=== PATIENT | male | born 1960 | race Caucasian/White ===

== ENCOUNTER 2024-11-13 14:56 | Emergency (ER) | payer OTHER, SELFPAY ==
[2024-11-13] VITALS (17 sets, daily range): BP systolic 105–176; BP diastolic 69–105; PULSE 90–99; RESP 16–17; TEMP 36.4–36.8; O2SAT 89–99
--- NOTE | ~2024-11-13 | XR_ITS ---
EXAMINATION: XR chest 1V portable Exam Date/Time: 11/13/2024 15:09 CDT HISTORY: shortness of breath/ productive cough x1 day Comparison: None. RESULT: Lines, tubes, and devices: None. Lungs and pleura: No focal consolidation, pleural effusion, or pneumothorax. 1 cm nodular opacity in the right lower lung. Cardiomediastinal silhouette: Unremarkable. Other: No acute osseous or upper abdominal finding. IMPRESSION: No acute cardiopulmonary process. 1 cm nodular right lower lung opacity, may represent artifact or pu lmonary nodule. Recommend PA and lateral views of the chest and comparison to outside studies. Reviewed, dictated and finalized at location K. IMPRESSION: No acute cardiopulmonary process. 1 cm nodular right lower lung opacity, may re present artifact or pulmonary nodule. Recommend PA and lateral views of the [address]est[address] st and comparison to outside studies.
--- NOTE | 2024-11-13 14:57 | ED_ITS ---
HPI - SOB/Dyspnea General Chief Complaint: Shortness of Breath/Dyspnea Stated Complaint: sob Time Seen by Provider: 11/13/24 14:57 Source: patient Mode of arrival: ambulatory Limitations: no limitations History of Present Illness HPI Narrative: 64-year-old male ex-smoker, history of alcohol use, hypertension dyslipidemia, dyslipidemia, COPD, prostate cancer presents to the ED with a 2 week history of -- cough which is productive of yellow/greenish sputum -- worsening shortness of breath with bilateral wheezing -- dyspnea on exertion no chest pain no fever or chills patient is on albuterol and Advair. MD elicited complaint: shortness of breath and cough Pertinent past history: COPD Onset (ago): week(s) ( 2 weeks) Timing: progressively worsening Severity: severe Exacerbating factors: exertion Relieving factors: rest Known history of: COPD Associated symptoms: denies other symptoms, cough, wheezing and sputum production Treatment prior to arrival: none and bronchodilator Related Data Home oxygen amount: none Home Medications ?Medication ?Instructions ?Recorded ?Confirmed ?Last Taken ?Type atorvastatin 20 mg tablet 20 mg PO DAILY 03/17/19 03/23/19 03/21/19 History fluticasone fur. 100 mcg-umeclid 1 inh inhalation DAILY 03/17/19 03/17/19 03/21/19 History 62.5 mcg-vilant 25 mcg inhalat.powder (Trelegy Ellipta) irbesartan 150 mg tablet 150 mg PO DAILY 03/17/19 03/17/19 03/21/19 History fluticasone fur. 100 mcg-umeclid 1 inhalation inhalation DAILY 04/12/19 Unknown History 62.5 mcg-vilant 25 mcg inhalat.powder (Trelegy Ellipta) Allergies Allergy/AdvReac Type Severity Reaction Status Date / Time No Known Allergies Allergy Verified 11/13/24 14:57 Review of Systems 2 Review of Systems: All systems reviewed & are unremarkable except as noted in HPI and below Constitutional: Constitutional: Reports as per HPI and Reports no additional constitutional complaints Eyes: Eyes: Reports as per HPI and Reports no additional eye complaints ENT: Reports system reviewed and no additional complaints, except as documented and Reports as per HPI Cardiovascular: Cardiovascular: Reports as per HPI and Reports no additional cardiovascular complaints Respiratory: Respiratory: Reports as per HPI, Reports no additional respiratory complaints, Reports chest congestion, Reports cough, Reports dyspnea and Reports wheezing Gastrointestinal: Gastrointestinal: Reports as per HPI and Reports no additional gastrointestinal complaints Genitourinary: Genitourinary: Reports no additional male genitourinary complaints and Reports as per HPI Musculoskeletal: Musculoskeletal: Reports no additional musculoskeletal complaints and Reports as per HPI Integumentary/Breasts: Skin/Breast: Reports system reviewed and no additional complaints, except as docu and Reports as per HPI Neurologic: Reports system reviewed and no additional complaints, except as documented and Reports as per HPI Psychiatric: Psychiatric: Reports no additional psychiatric complaints and Reports as per HPI Endocrine: Endocrine: Reports no additional endocrine complaints and Reports as per HPI Hematologic/Lymphatic: Hematologic/Lymphatic: Reports no additional hematologic/lymphatic complaints and Reports as per HPI Allergic/Immunologic: Allergic/Immunologic: Reports no additional allergic/immunologic complaints and Reports as per HPI [facility] Past Medical History Medical History Encounter for screening colonoscopy History of prostate cancer COPD (chronic obstructive pulmonary disease) Hypertension Hyperlipidemia Family History Family History Mother Patient's mother is , Onset Age: 84 Family history of malignant neoplasm of uterus Family history of malignant neoplasm of urinary bladder Father Carcinoma of colon Malignant neoplasm of prostate Social History Social History Smoking status: Former smoker Alcohol intake: current Exam 2 Narrative: Afebrile Const: General: ill appearing Orientation/consciousness: patient oriented x3 Other: in respiratory distress HENMT: Head: normal to inspection Ears: external ears normal F opal/Nose/Sinus: Normal external nose present Face and sinus: normal facial exam Mouth: Yes Normal oral and palatal mucosa present Throat: posterior oropharynx normal Eyes: Conjunctivae: conjunctivae normal Pupils: Equal, round and reactive pupils present EOM: EOMs intact bilaterally Direct Ophthalmoscopy: no photophobia Neck: Neck: normal visual inspection, no lymphadenopathy and no meningeal signs Chest: Chest palpation & inspection: normal inspection of the chest Resp: Effort & Inspection: labored and uses accessory muscles Auscultation: wheezes and diminished lung sounds Cardio: Rate: regular rate Rhythm: regular rhythm GI: GI Palp: Yes Soft to palpation Auscultation: normal bowel sounds O ther: no tenderness/ rigidity /rebound Course Course Emergency Course: COPD exacerbation- patient received DuoNeb treatment and Solu-Medrol 125 IM. patient was noted to have a normal RSV /influenza / COVID. Chest x-ray did not show any infiltrates evidence of CHF. Patient had a normal troponin and a proBNP. Patient had a normal white cell count. ABG on room air was noted to be 739/37/62/ 90%. Patient tested negative for D-dimer. ProBNP was noted to be 58. 1 cm right lower lobe nodule Vital Signs Vital signs: Vital Signs Temperature 36.4 C 11/13/24 14:56 Pulse Rate 99 11/13/24 14:56 Respiratory Rate 16 11/13/24 14:56 Blood Pressure 176/100 H 11/13/24 14:56 Pulse Oximetry 92 11/13/24 14:56 Oxygen Delivery Room Air 11/13/24 14:56 Temperature 36.4 C 11/13/24 14:56 Pulse Rate 99 11/13/24 14:56 Respiratory Rate 16 11/13/24 14:56 Blood Pressure 176/100 H 11/13/24 14:56 Pulse Oximetry 92 11/13/24 15:00 Oxygen Delivery Room Air 11/13/24 15:00 MDM - SOB/Dyspnea MDM Narrative Medical decision making narrative: COPD exacerbation- patient currently does have trilogy elevated up. The patient is taking Advair. Will give DuoNeb. Advised admission but the patient does not want to be admitted. right lower lobe 1 cm nodule Differential Diagnosis Differential diagnosis: Likely congestive heart failure and pulmonary embolism Medical Records Attestation: I reviewed the patient's medical records. Lab Data Attestation: I reviewed the patient's lab results. 11/13/24 15:35 11/13/24 15:35 Labs: Lab Results 11/13/24 Range/Units 15:35 WBC 7.8 (4.8-10.8) K/mm3 RBC 5.54 (4.70-6.10) M/mm3 Hgb 16.4 (14.0-18.0) g/dL Hct 48.0 (40.0-54.0) % MCV 86.6 (78.0-102.0) fL MCH 29.6 (27.0-31.0) pg MCHC 34.2 (32-36) g/dL RDW 11.9 (11.6-14.4) % Plt Count 287 (150-420) K/mm3 MPV 10.3 (8.7-11.0) fl Immature Gran % (Auto) 0.4 H (0.0-0.0) % Neut % (Auto) 64.9 (50.0-70.0) % Lymph % (Auto) 17.1 L (18.0-42.0) % Parmer % (Auto) 8.1 (2.0-11.0) % Eos % (Auto) 8.6 H (1.0-6.0) % Baso % (Auto) 0.9 (0.0-1.0) % Lymph # (Auto) 1.34 (1.10-4.50) K/mm3 [place]mer # (Auto) 0.63 (0.10-0.90) K/mm3 Eos # (Auto) 0.67 H (0.02-0.50) K/mm3 Baso # (Auto) 0.07 (0.00-0.10) K/mm3 Abs Immat Gran (auto) 0.03 H (0.00-0.00) K/mm3 Absolute Neuts (auto) 5.08 (1.70-7.20) K/mm3 Absolute Nucleated RBC 0.00 (0.00-0.00) K/mm3 Nucleated RBC % 0.0 (0-0.0) % PT 11.3 H (9.64-11.0) Seconds INR 1.0 APTT 29.4 (23.9-30.70) Sec D-Dimer 0.19 (0.19-0.50) mg/L Sodium 139 (137-145) mmol/L Potassium 4.0 (3.4-5.0) mmol/L Chloride 104 (98-107) mmol/L Carbon Dioxide 25 (22-30) mmol/L Anion Gap 10 (4-12) mmol/L BUN 9 (9-20) mg/dL Creatinine 0.75 (0.7-1.3) mg/dL Estim Creat Clear Calc 107 ml/min Estimated GFR > 60 (59 - ) Glucose 115 H (65-110) mg/dL Calculated Osmolality 287 (285-295) mOsm/kg Lactic Acid 1.8 (0.4-2.0) mmol/L Calcium 8.9 (8.4-10.2) mg/dL Magnesium 2.0 (1.6-2.3) mg/dL Total Bilirubin 1.6 H (0.2-1.3) mg/dL AST 40 (17-59) U/L ALT 40 (6-50) U/L Alkaline Phosphatase 99 (38-126) U/L Total Creatine Kinase 192 H (55-170) U/L Troponin I < 0.012 (0.000-0.034) ng/mL NT-Pro-B Natriuret Pep 58 (19.9-100) pg/mL Total Protein 8.2 (6.3-8.2) g/dL Albumin 4.9 (3.5-5.1) g/dL Lipase 52 (23-300) U/L Urine Color Yellow (Yellow) Urine Appearance Clear (Clear) Urine pH 6.0 (5.0-8.0) Ur Specific [place] >= 1.030 H (1.010-1.020) Urine Protein 2+ H (Negative) Urine Glucose (UA) Negative (Negative) Urine Ketones 1+ H (Negative) Ur Blood (Man) Trace-intact H (Negative) Urine Nitrate Negative (Negative) Urine Bilirubin 1+ H (Negative) Urine Urobilinogen 1.0 (0.2-1.0) mg/dL Leukocyte Esterase Rfl Negative (Negative) LESLIE/UL Urine RBC 0-2 (0-2) /hpf Urine WBC None seen (0-3) /hpf Ur Squamous Epith Cells Few (Few) /hpf Urine Bacteria None seen (None) /hpf Ur Oval Fat Bodies None (None) /lpf Influenza A (RT-PCR) Negative (Negative) Influenza B (RT-PCR) Negative (Negative) RSV (RT-PCR) Negative (Negative) SARS-CoV-2 RNA (RT-PCR) Negative (Negative) ABG Data ABG results: 11/13/24 16:50 Puncture Site Left radial ABG pH 7.39 ABG pCO2 37.1 ABG pO2 61.8 L ABG HCO3 22.1 L ABG O2 Saturation 91.1 L ABG Base Excess -2.3 L Oxyhemoglobin 90.2 L O2 Delivery Device Room air O2 Liters/Min 0.0 ECG Data EKG #1: ECG completion date: 11/13/24 ECG completion time: 15:41 Interpretation: Normal sinus rhythm. Normal axis. No ST elevation. Discharge Plan Discharge Clinical Impression: Chronic obstructive pulmonary disease with (acute) exacerbation, Pulmonary nodule 1 cm or greater in diameter Patient Disposition: Home Condition: Stable Instructions: Antibiotic Form, COPD (Chronic Obstructive Pulmonary Disease) (ED), Pulmonary Nodules (ED) Patient Language: [place] Prescriptions: New azithromycin [Zithromax] 250 mg tablet 250 mg PO DAILY 4 Days Qty: 4 0RF Rx Instructions: start on day 2 of therapy ipratropium-albuterol 0.5 mg-3 mg(2.5 mg base)/3 mL solution for nebulization 3 ml inhalation Q6H MDD 4 PRN (Reason: shortness of breath) Qty: 180 0RF prednisone 20 mg tablet 20 mg PO BID Qty: 10 0RF No Action atorvastatin 20 mg Tablet 20 mg PO DAILY irbesartan 150 mg Tablet 150 mg PO DAILY Trelegy Ellipta 100-62.5-25 mcg Blister With Device 1 inh INHALATION DAILY Trelegy Ellipta 100-62.5-25 mcg blister with device 1 inhalation INHALATION DAILY Follow-up/Referrals: UNKNOWN,DOCTOR [Non-Staff] - Time of Disposition: 17:44
--- OUTSIDE RECORDS SUMMARY | 2024-11-13 14:58 | XMS_ITS | Referral Summary ---
Author Organization [address] Address [address] [place] [address] Care Team Providers Care Oleomargarine Maker Name Role Phone Dylan Moore MD Primary Care Provider [phone] Bryson Dugan MD Unavailable [phone] Encounters Date Type Department Care Team Description 11/13/2024 Telephone [facility] [address] [place] [address] Tangela Lynch MA 11/10/2024 Orders Only [facility] [address] [address] Dylan Moore MD COPD exacerbation (HCC) 11/08/2024 Telephone [facility] [address] [address] Dylan Moore MD Albuterol Inhaler,prednisone refills 10/13/2024 7:00 PM CDT Office Visit [facility] [address] [place] [address] Jasmine Ace NP COPD exacerbation (HCC) (Primary Dx) from Last 3 Months Allergies No known active allergies Medications multivitamin capsule Take 1 capsule by mouth daily Active vit D3-vit N-nqmboqhzi-fyv s [phone] zbnk-dyt-nn-mg tablet Take by mouth Active metoprolol tartrate (LOPRESSOR) 25 mg immediate release tablet Take 1 tablet (25 mg total) by mouth 2 (two) times a day 180 tablet 4 08/12/19 24 Active atorvastatin (LIPITOR) 40 mg tablet Take 1 tablet (40 mg total) by mouth daily 90 tablet 3 02/12/20 24 2024 Active ofloxacin (OCUFLOX) 0.3 % ophthalmic solution Administer 2 drops into the left ear 4 (four) times a day 5 mL 02/12/20 24 Active albuterol HFA (PROVENTIL HFA,VENTOLIN HFA,PROAIR HFA) 90 mcg/actuation inhalerIndicati ons:Chronic bronchitis, unspecified chronic bronchitis type (HCC) Inhale 2 puffs every 4 (four) hours as needed for wheezing 9 g 11 02/12/20 24 Active montelukast (SINGULAIR) 10 mg tabletIndicatio ns:Chronic bronchitis, unspecified chronic bronchitis type (HCC) Take 1 tablet (10 mg total) by mouth nightly 100 tablet 3 08/13/19 25 Active irbesartan (AVAPRO) 150 mg tabletIndicatio ns:Hypertension , essential Take 1 tablet by mouth once daily 90 tablet 09/25/19 25 Active albuterol 2.5 mg /3 mL (0.083 %) nebulizer solutionIndicat ions:COPD exacerbation (HCC) Take 3 mL (2.5 mg total) by nebulization every 6 (six) hours as needed for wheezing 75 mL 10/14/19 25 Active fluticasone propion-salmete roL (ADVAIR DISKUS) 250-50 mcg/dose diskus inhalerIndicati ons:Chronic bronchitis, unspecified chronic bronchitis type (HCC) INHALE 1 DOSE BY MOUTH TWICE DAILY. RINSE MOUTH WITH WATER AFTER USE AND SPIT. DO NOT SWALLOW. 60 each 10/20/19 25 Active albuterol 2.5 mg /3 mL (0.083 %) nebulizer solution Take 3 mL (2.5 mg total) by nebulization 4 (four) times a day as needed for wheezing or shortness of breath 75 mL 2 11/11/19 25 2025 Active fluticasone propion-salmete roL (ADVAIR DISKUS) 250-50 mcg/dose diskus inhalerIndicati ons:Chronic bronchitis, unspecified chronic bronchitis type (HCC) INHALE 1 DOSE BY MOUTH TWICE DAILY. RINSE MOUTH WITH WATER AFTER USE AND SPIT. DO NOT SWALLOW. 60 each 09/25/19 25 2024 Discontinued predniSONE (DELTASONE) 10 mg tabletIndicatio ns:COPD exacerbation (HCC) Take 4 tablets (40 mg) by mouth daily for 3 days, THEN 3 tablets (30 mg) daily for 3 days, THEN 2 tablets (20 mg) daily for 3 days, THEN 1 tablet (10 mg) daily for 3 days. 30 tablet 10/15/19 25 2024 azithromycin (ZITHROMAX) 250 mg tabletIndicatio ns:COPD exacerbation (HCC) Take 2 tabs (500 mg) by mouth today, than 1 tab (250 mg) daily for 4 days. 6 tablet 10/14/19 25 2024 Active Problems Problem Noted Date Diagnosed Date Tinea corporis 08/12/2024 Assessment & Plan (08/12/2024 2:47 PM CDT): Patient with annular pruritic rash on upper back present for the past several months. Consistent with tinea, recommended use of Nizoral shampoo as body wash instructed to leave on skin for 5 minutes before rinsing. Dry skin thoroughly, apply clotrimazole cream b.i.d.. Follow up if no improvement. Uncontrolled hypertension 01/04/2022 Assessment & Plan (01/04/2022 4:57 PM CDT): Patient to start hydrochlorothiazide and metoprolol in addition to it irbesartan. Will follow-up in office in 1-2 weeks to monitor blood pressure. Extensively reviewed need to go to ER if experiencing chest pain, dizziness, sweating, headache or visual disturbances. Alcohol abuse 01/04/2022 Assessment & Plan (01/25/2022 2:11 PM CDT): Continues IOP meetings was I will 3 times weekly. Has had not had any alcohol since 01/03/2022. Assessment & Plan (01/04/2022 4:59 PM CDT): Discussed treatment options with patient today and need for additional resources. He will schedule an appointment with our offers addiction social worker for next week. He denies feeling depressed or hopeless. Denies any suicidal ideation or plans when asked directly today. Fatigue 12/29/2020 Assessment & Plan (12/29/2020 6:00 PM CDT): Discussed causes of fatigue. Will check labs today. Discussed LOIDA, patient would like to return to discuss further. Encounter for screening for lung cancer 12/30/19 Assessment & Plan (12/29/2020 5:36 PM CDT): Will get scan today. Prostate cancer 06/06/2020 Assessment & Plan (08/12/2024 2:45 PM CDT): Prostatectomy; previously following with Urology and Dr. Velázquez. To establish for continued surveillance. PSA ordered today. Assessment & Plan (12/05/2021 8:12 AM CDT): Prostatectomy. Following with Dr. Velázquez urology, has scheduled follow up in 2 days. Assessment & Plan (12/29/2020 4:29 PM CDT): Prostatectomy 12/2017-follows with urology every [address] Velázquez. LAST OV 12/27/20. Class 1 obesity due to exces s calories with serious comorbidity and body mass index (BMI) of 33.0 to 33.9 in adult 06/06/2020 Assessment & Plan (08/12/2024 2:44 PM CDT): Stable; encouraged healthy diet exercise. Assessment & Plan (02/12/2024 1:52 PM CDT): Encouraged patient to increase intentional activity/exercise. Recommended daily physical exercise such as walking. Assessment & Plan (08/12/2023 11:08 AM CDT): Discussed healthy diet and importance of regular physical activity. Assessment & Plan (02/10/2023 11:30 AM CDT): Discussed importance of regular physical activity. Assessment & Plan (01/25/2022 2:14 PM CDT): Discussed healthy diet and importance of regular physical activity. Assessment & Plan (01/04/2022 4:48 PM CDT): Discussed healthy diet and importance of regular physical activity. Assessment & Plan (12/05/2021 8:15 AM CDT): Discussed healthy diet and importance of regular physical activity. Assessment & Plan (12/29/2020 5:36 PM CDT): Discussed healthy diet and importance of regular physical activity. Chronic obstructive pulmonary disease 06/06/2020 Assessment & Plan (08/12/2024 5:06 PM CDT): Continue Advair 1 puff b.i.d., reports using albuterol inhaler about once daily. Patient with increased wheezing in the last few weeks. States that he did not get refill for Singulair, requesting today. Faint wheezing on exam. Denies any shortness of breath or fevers. Prescribed prednisone taper today. He is due for CT lung cancer screening, ordered this today. Patient with a 64 pack year smoking history, quit 2010. Assessment & Plan (02/12/2024 1:52 PM CDT): Continues Advair and Singulair nightly. Has been taking Zyrtec as well. Denies any recent exacerbation or need for albuterol inhaler. Will continue to monitor. Assessment & Plan (08/12/2023 11:04 AM CDT): Patient states that symptoms have improved some in the last few weeks. Still complains of productive cough. Is also having a lot of nasal congestion/drainage. Recommended addition of Zyrtec or Claritin nightly as well as Flonase nasal spray. Continue Advair and montelukast. Continues to refrain from smoking. No indication for antibiotics. Instructed patient to call office if he develops any new or worsening symptoms. Assessment & Plan (02/10/2023 11:29 AM CDT): Patient reports infrequent use of albuterol inhaler. Denies wheezing or coughing. Advair diskus 1 puff BID ordered as a lower cost option versus trelegy. Recommended to follow up with pulmonology regarding trelegy samples. Patient aware to follow up if advair diskus does not provide relief, or if experiencing increased shortness of breath or wheezing. Assessment & Plan (01/04/2022 4:53 PM CDT): Continues to have wheezing and mucus production. Encouraged patient to increase use of albuterol inhaler. Updated referral to pulmonology. Assessment & Plan (12/05/2021 8:10 AM CDT): Wheezing. Continue current inhaler and medication regimen. Complete prednisone course. Assessment & Plan (12/29/2020 5:28 PM CDT): No acute exacerbations. Advised to use albuterol inhaler 15 minutes before Trelegy. Melena 05/19/2020 COVID-19 virus infection 05/19/2020 Hyperlipidemia 05/19/2020 Assessment & Plan (08/12/2024 2:44 PM CDT): Stable continue atorvastatin 40 mg daily. Assessment & Plan (02/12/2024 2:05 PM CDT): Reviewed cholesterol for the patient, LDL increased. Will change simvastatin to atorvastatin 40 mg daily. Encouraged daily compliance. Will continue to monitor. Assessment & Plan (08/12/2023 11:08 AM CDT): Reviewed cholesterol panel today with patient, LDL increased significantly. Discussed impact of noncompliance with medication and diet on cholesterol. LDL =234. Will increase simvastatin from 20 mg to 40 mg daily. Recommended use of pill box/setting alarm on phone. Reviewed diet and exercise recommendations. Will repeat labs in 6 months. Assessment & Plan (02/10/2023 11:17 AM CDT): Patient has stopped taking atorvastatin 20 mg due to insurance changes. Will start simvastatin 20 mg and plan to repeat labs prior to next follow up visit. Assessment & Plan (01/25/2022 2:09 PM CDT): 05/2020 TC 153 TRG 175 HDL 37 LDL 81 12/2021 TC 223 HDL 54 TRG 213 LDL 126 Has been taking atorvastatin 20 mg daily. Previously missing many doses. Will plan to repeat labs prior to follow up visit in 6 months, labs ordered to [facility]. Assessment & Plan (01/04/2022 4:48 PM CDT): Condition is improving, but not at goal Discussed/ordered labs, encouraged healthy, low carbohydrate lifestyle and at least 150min/week of exercise, continue on atorvastatin 20 mg daily. II=520, HDL=54, ZJY=542, CFO=310 Assessment & Plan (12/05/2021 8:16 AM CDT): HPI: Condition is worsening A&P: Discussed/ordered labs, encouraged healthy, low carbohydrate lifestyle and at least 150min/week of exercise, continue on atorvastatin 20 mg daily. Discussed importance of diet and medication compliance and concerns of elevated triglycerides. Repeat fasting labs. Assessment & Plan (12/29/2020 6:06 PM CDT): Reviewed previous labs. Will check labs today and make adjustments to medications as needed. Secondary prevention Discussed focusing on limiting bad fats in the diet and using exercise as a way to improve cholesterol. Reviewed exercise recommendations and red flags warranting further evaluation. Hypertension, essential 05/19/2020 Assessment & Plan (08/12/2024 2:45 PM CDT): Blood pressure is well controlled, no change made today. Continue metoprolol 25 mg b.i.d. and irbesartan 150 mg daily. Assessment & Plan (02/12/2024 1:53 PM CDT): Blood pressure well controlled today, continue present management with irbesartan and metoprolol. Assessment & Plan (08/12/2023 11:02 AM CDT): Blood pressure is not at goal, patient is not taking metoprolol as he did not realize this was a long-term medication. Will restart metoprolol, continue irbesartan and continue to monitor. Assessment & Plan (02/10/2023 11:21 AM CDT): Blood pressure not at goal today 142/100. Patient stopped taking irbesartan and hydrochlorothiazide due to insurance changes. Denies headaches, dizziness, chest pain, chest pressure, or lower extremity edema. Plan to continue metoprolol 25 mg BID and irbesartan 150 mg daily. Assessment & Plan (01/25/2022 2:14 PM CDT): Patient BP improved with addition of HCTZ and metoprolol. Condition is improving Discussed/ordered labs, encouraged healthy, low carbohydrate lifestyle and at least 150min/week of exercise, continue on hydrochlorothiazide 12.5 mg, metoprolol 25 mg, irbesartan 150 mg tablet daily. Assessment & Plan (12/05/2021 8:15 AM CDT): HPI: Condition is stable A&P: Discussed/ordered labs, encouraged healthy, low carbohydrate lifestyle and at least 150min/week of exercise, continue on irbesartan 150 mg daily. Assessment & Plan (12/29/2020 6:07 PM CDT): BP elevated today 2/2 patient not taking medications. Checking BP at home. Will call if SBP >140, DBP>90. Continue effort to improve diet-increase fruits/vegetables. Watch sodium intake <2000mg daily Labs ordered; will notify of results. Symptomatic anemia 05/18/2020 Anemia due to GI blood loss 05/18/2020 Overview (05/19/2020): Added automatically from request for surgery [id number] Bleeding duodenal ulcer Resolved Problems Problem Noted Date Diagnosed Date Resolved Date Need for pneumococcal vaccine 12/05/2021 12/05/2021 Moderate malnutrition 05/22/20202020 Immunizations Immunization Administration Dates Next Due Influenza, Trivalent, Adjuva nted, Intramuscular 02/09/2023(Deferred: Patient Refused) Influenza, Trivalent, IM (MDV) (Deferred: Patient Refused),02/09/2022(Deferred: Patient Refused),01/25/2022(Deferred: Patient Refused) Influenza, Unspecified 08/12/2024(Deferr ed: Patient Refused),02/10/2024(Deferred: Patient Refused),08/12/2023(Deferred: Patient Refused),02/10/2023(Deferred: Patient Refused),02/09/2023(Deferred: Patient Refused),02/09/2023(Deferred: Patient Refused),02/09/2022(Deferred: Patient Refused),02/09/2022(Deferred: Patient Refused),02/09/2022(Deferred: Patient Refused),01/25/2022(Deferred: Patient Refused),01/04/2022(Deferred: Patient Refused),02/09/2021,02/09/2021, 021(Deferred: Patient Refused),03/13/2020,03/13/2020, 019,02/08/2019 Pneumococcal Conjugate Pcv20 08/12/2023 Pneumococcal Polysaccharide PPV23 07/03/2021 Social History Tobacco Use Types Packs/Day Years Used Date Smoking Tobacco: Former Cigarettes 2 32 1 979 - 2010 Passive Smoke Exposure: Never Smokeless Tobacco: Never PHQ-2 Answer Date Recorded PHQ-2 Total Score (If total score is 3 or more points, staff should administer the PHQ-9) 0 08/12/2024 Sex and Gender Information Value Date Recorded Sex Assigned at Not on file Legal Sex Male 7:39 PM PROTOTYPE FABRICATOR Gender Identity Male 12/29/2020 11:30 AM CDT Sexual Orientation Straight 12/29/2020 11 :30 AM CDT Last Filed Vital Signs Vital Sign Reading Time Taken Comments Blood Pressure 160/92 10/13/2024 7:13 PM CDT Pulse 100 10/13/2024 7:42 PM CDT Temperature 36.4 C (97.6 F) 10/13/2024 6:54 PM CDT Respiratory Rate 20 10/13/2024 6:54 PM CDT Oxygen Saturation 96% 10/13/2024 7:42 PM CDT Inhaled Oxygen Concentration - - Weight 104.8 kg (231 lb) 10/13/2024 6:54 PM CDT Height 177.8 cm (5' 10) 10/13/2024 6:54 PM CDT Body Mass Index 33.15 10/13/2024 6:54 PM CDT Plan of Treatment Not on file Procedures Procedure Name Priority Date/Time Associated Diagnosis Comments PSA SCREEN Routine 07/28/2023 9:40 AM CDT Prostate cancer (HCC) CT LUNG CANCER SCREENING Schedule Routine, Read Routine (OP Routine) 03/25/2022 8:11 AM PROTOTYPE FABRICATOR Nicotine dependence, cigarettes, in remission from Last 3 Months or Most Recently Relevant to Health Maintenance Results * PSA screen (07/28/2023 9:40 AM CDT) PSA-Total 0.02 <=5.40 ng/mL Comment: Interpretive Data AGE SEX REFERENCE INTERVAL 0 minutes-150 years Female None 0 minutes-49 years Male None 50-59 years Male 0-3.90 60-69 years Male 0-5.40 70-79 years Male 0-6.20 80-150 years Male 0-6.20 The Jasmin PSA Total assay procedure was used. Results from different manufacturers or methods may not be comparable. Serial testing should be performed using the same method. Current interpretive data last revised 21. Testing performed by: [facility], [address] [place] [address], [place]., [address] Blood 07/28/2023 9:40 AM CDT 07/28/2023 1:39 PM CDT us Candy Gibbs NP LAB BLOOD ORDERABLES Final Result [facility] [address] [facility] Department [place] [address] * CT Lung Cancer Screening (03/25/2022 8:11 AM PROTOTYPE FABRICATOR) Anatomical Region Laterality Modality Chest N/A Computed Tomogra phy 03/25/2022 6:20 PM PROTOTYPE FABRICATOR Impressions 03/25/2022 6:26 PM PROTOTYPE FABRICATOR 1. Background of mild pulmonary emphysema. 2. No suspicious nodularity. Tiny bilateral nodules are present, stable. 3. Atelectasis in the right middle and right lower lobes, stable. 4. Granulomatous calcifications. Lung-RADS v1.1 category 2: Benign appearance or behavior. Recommendation: Low dose CT of chest in 12 months. THIS IS AN ELECTRONICALLY VERIFIED FINAL REPORT 03/25/2022 6:26 PM - Electronically signed by Melissa Leonard M.D. TW: NERY Report ID: [id number] Reading Location: [id number] [facility] 03/25/2022 6:26 PM PROTOTYPE FABRICATOR EXAM DESCRIPTION: CT LUNG CANCER SCREENING REASON FOR STUDY: Screening CT of the chest in a former smoker with a 60 pack year smoking history. Additional history: COPD, chronic bronchitis, emphysema and hypertension. COVID in April 2020. History of prostate carcinoma.. TECHNIQUE: Low dose CT scan of the chest was performed without intravenous contrast using helical scanning technique. The exam extends from the lung apices through the lung bases. Automatic exposure control was used as a dose optimization technique. NOTE: This study was performed for the specific purposes of lung cancer screening and is not an alternative to diagnostic chest CT. RADIATION DOSE: CT dose index volume (CTDIvol) = 1.82 mGy COMPARISON: 03/23/2021. FINDINGS: SMOKING RELATED LUNG DISEASE: There is a background of mild pulmonary emphysema. There is mild bronchial wall thickening. LUNG NODULES: There are granulomatous calcifications most evident within the right lower lobe. There are a few tiny bilateral pulmonary nodules. For instance a 3 mm subpleural right apical pulmonary nodule on image number 27, stable. No new suspicious pulmonary nodule present within either lung. OTHER: There is linear scarring or atelectasis demonstrated within the right middle lobe and the right lower lobe. This is stable compared to the previous examination. There is no pneumonic consolidation. There is no effusion or pneumothorax. There is no mediastinal or hilar lymphadenopathy. The esophagus is unremarkable. The heart is normal in size. There are coronary artery calcifications. No pericardial effusion. Postinflammatory calcifications are noted within the right hilum. Thoracic aorta is normal in caliber. There is no axillary lymphadenopathy. The chest wall is unremarkable. Visualized upper abdomen reveals no significant incidental findings. The known hypodensity within the liver on prior examination is not well visualized on this low-dose study. There is no acute osseous abnormality. There is thoracic spondylosis. Drew Braswell MD IM CT PROCEDURES Final Result from Last 3 Months or Most Recently Relevant to Health Maintenance Insurance [id number] [place] [address] [employer] OPEN ACCESS Advance Directives For more information, please contact: [phone] Documents on File Type Date Recorded Patient Shorthand Reporter Expl anation Advance Directives and Livin g Will 02/04/2022 1:10 PM * Full Code (Latest Code Status on File) Date Activated Date Inactivated Comments 05/23/2020 1:33 AM 05/23/2020 4:07 PM * Full Code Date Activated Date Inactivated Comments 05/23/2020 1:33 AM 05/23/2020 1:33 AM * Full Code Date Activated Date Inactivated Comments 05/23/2020 1:33 AM 05/23/2020 1:33 AM * Full Code Date Activated Date Inactivated Comments 05/18/2020 8:14 PM 05/23/2020 1:33 AM Care Teams Oleomargarine Maker Relationship Specialty Start Date End Date Dylan Moore MD [address] [place] [address] PCP - General Family Medicine 11/29/19 Bryson Dugan MD [address] [place] [address] Consulting Physician Gastroenterology 05/23/20
--- OUTSIDE RECORDS SUMMARY | 2024-11-13 14:58 | XMS_ITS | Clinical Summary ---
Author Organization [facility] [place] [place] 163 [facility] lt Address [address] [facility] [place] [address] Care Team Providers Care Clinical Research Director Name Role Phone Dylan Moore MD Primary Care Provider [phone] Bryson Dugan MD Unavailable [phone] Allergies No known active allergies Medications multivitamin capsule Take 1 capsule by mouth daily Active vit D3-vit P-snwirvfon-qoj s [phone] tgot-wpg-ka-mg tablet Take by mouth Active metoprolol tartrate [...] will schedule an appointment with our offers social work faculty member for next week. He denies feeling depressed [...] visit in 6 months, labs ordered to [employer]. Assessment & Plan (01/04/2022 4:48 PM CDT): Condition is improving, but not at goal Discussed/ordered labs, encouraged healthy, low carbohydrate lifestyle and at least 150min/week of exercise, continue on atorvastatin 20 mg daily. MT=532, HDL=54, LIT=810, OMG=903 Assessment & Plan (12/05/2021 8:16 AM CDT): [...] (05/19/2020): Added automatically from request for surgery [id number] Bleeding duodenal ulcer Resolved Problems Problem Noted Date Diagnosed Date Resolved Date Need for pneumococcal vaccine 12/05/2021 12/05/2021 Moderate malnutrition 05/22/20202020 Encounters Date Type Department Care Team Description 11/13/2024 Telephone [facility] at [address] [place] [address] Tangela Lynch MA 11/10/2024 Orders Only [facility] [address] [address] Dylan Moore MD COPD exacerbation (HCC) 11/08/2024 Telephone [facility] [address] [address] Dylan Moore MD Albuterol Inhaler,prednisone refills 10/13/2024 7:00 PM CDT Office Visit [facility] at [address] [place] [address] Jasmine Ace NP COPD exacerbation (HCC) (Primary Dx) from Last 3 Months Immunizations Immunization Administration Dates Next Due Influenza, Trivalent, Adjuva nted, Intramuscular 02/09/2023(Deferred: Patient Refused) Influenza, Trivalent, IM (MDV) (Deferred: Patient Refused),02/09/2022(Deferred: Patient Refused),01/25/2022(Deferred: Patient Refused) Influenza, Unspecified 08/12/2024(Deferr ed: Patient Refused),02/10/2024(Deferred: Patient Refused),08/12/2023(Deferred: Patient Refused),02/10/2023(Deferred: Patient Refused),02/09/2023(Deferred: Patient Refused),02/09/2023(Deferred: Patient Refused),02/09/2022(Deferred: Patient Refused),02/09/2022(Deferred: Patient Refused),02/09/2022(Deferred: Patient Refused),01/25/2022(Deferred: Patient Refused),01/04/2022(Deferred: Patient Refused),02/09/2021,02/09/2021, 021(Deferred: Patient Refused),03/13/2020,03/13/2020, 019,02/08/2019 Pneumococcal Conjugate Pcv20 08/12/2023 Pneumococcal Polysaccharide PPV23 07/03/2021 Surgical History Surgery Date Site/Laterality Comments PROSTATE SURGERY Medical History Medical History Date Comments COPD (chronic obstructive pulmonary disease) (HC C) Hypertension Hyperlipidemia GERD (gastroesophageal reflux disease) Asthma Clotting disorder Cancer (HCC) Emphysema of lung (HCC) Peptic ulceration Family History Medical History Relation Name Comments Cancer Father Thom Cancer Mother Keri Relation Name Status Comments Brother 1 Alive Brother 2 Alive Brother 3 Alive Father Thom Mother Keri Sister Alive Social History Tobacco Use Types Packs/Day Years [...] on file 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 Gender Identity Male 12/29/2020 11:30 AM CDT Sexual Orientation Straight 12/29/2020 11 :30 AM CDT Obstetrics History Last Filed Vital Signs Vital Sign Reading [...] 10/13/2024 6:54 PM CDT Plan of Treatment Health Maintenance Due Date Last Done Comments Hepatitis C Screening 1960 DTaP/Tdap/Td Vaccine (1 - Tdap) 1971 Hepatitis B Screening 1978 Zoster Vaccine (1 of 2) 2010 Regular Well Visit/Exam 18-64 05/26/2020 05/26/2019 Lung Cancer Screening 03/26/2023 03/25/2022, 021 Colon Cancer Screening-Colonoscopy 12/11/2023 Covid-19 Vaccine (3 - 2023-2 5 season) 2024 01/30/2021, 01/09/2021 Influenza Vaccine (#1) 2025 , 02/09/2021, 02/09/2021, Additional history exists Prostate Cancer Screening-PSA 07/27/2025 07/28/2023 Depression Screening 08/12/2025 08/12/2024, 02/12/2024, 08/12/2023, Additional history exists Pneumococcal vaccine <65 Completed 08/12/2023, 06/13 Procedures Procedure Name Priority Date/Time Associated Diagnosis Comments PSA SCREEN Routine 07/28/2023 9:40 AM CDT Prostate cancer (HCC) CT LUNG CANCER SCREENING Schedule Routine, Read Routine (OP Routine) 03/25/2022 8:11 AM CONSULTANT Nicotine dependence, cigarettes, in remission from Last [...] data last revised 21. Testing performed by: [facility], [address] [place] [address]., [id number] Blood 07/28/2023 9:40 AM CDT 07/28/2023 1:39 PM CDT Candy Gibbs SUPERVISOR [employer] LAB BLOOD ORDERABLES Final Result [facility] 1 [facility] Department [place] [address] * CT Lung Cancer Screening (03/25/2022 8:11 AM CONSULTANT) Anatomical Region Laterality Modality Chest N/A Computed Tomogra phy 03/25/2022 6:20 PM CONSULTANT Impressions 03/25/2022 6:26 PM CONSULTANT 1. Background of mild pulmonary emphysema. 2. [...] Melissa Leonard M.D. TW: NERY Report ID: [id number] Reading Location: [id number] Narrative 03/25/2022 6:26 PM CONSULTANT EXAM DESCRIPTION: CT LUNG CANCER SCREENING REASON [...] There is thoracic spondylosis. 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
--- OUTSIDE RECORDS SUMMARY | 2024-11-13 14:58 | XMS_ITS ---
Author Organization [facility] [place] 163 [facility] lto Address [address] yuni [facility] [place] [address] Care Team Providers Care Encephalographer Name Role Phone Dylan Moore MD Primary Care Provider [phone] Bryson Dugan MD Unavailable [phone] Active Problems Problem Noted Date Diagnosed Date [...] schedule an appointment with our offers social professionals for next week. He denies feeling depressed [...] visit in 6 months, labs ordered to [employer]. Assessment & Plan (01/04/2022 4:48 PM CDT): Condition is improving, but not at goal Discussed/ordered labs, encouraged healthy, low carbohydrate lifestyle and at least 150min/week of exercise, continue on atorvastatin 20 mg daily. DY=493, HDL=54, FSA=686, UFJ=544 Assessment & Plan (12/05/2021 8:16 AM CDT): [...] (05/19/2020): Added automatically from request for surgery [id number] Bleeding duodenal ulcer Current Treatment and Therapy Plans No current plan information found. Past Treatment and Therapy Plans No past plan information found. Lifetime Dose Tracking * Chemical Lifetime Dose Automatic Entry Manual Entr y DLP 376.8 mGycm 376.8 mGycm 0 mGycm CTDIvol 11.45 mGy 11.45 mGy 0 mGy Resolved Problems Problem Noted Date Diagnosed Date Resolved Date Need for pneumococcal vaccine 12/05/2021 12/05/2021 Moderate malnutrition 05/22/20202020
--- OUTSIDE RECORDS SUMMARY | 2024-11-13 14:58 | XMS_ITS | Encounter Summary ---
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 Patient scheduled with us tomorrow. documented in this encounter Plan of Treatment Not on file documented as of this encounter Visit Diagnoses Not on filedocumented in this encounter Care Teams Health And Safety Coordinator Relationship Specialty Start Date End Date Dylan Moore MD [address] [place] [address] PCP - General Family Medicine 11/29/19 Bryson Dugan MD [address] [place] [address] Consulting Physician Gastroenterology 05/23/20 documented as of this encounter
--- NOTE | 2024-11-13 15:05 | ECG_ITS ---
Test Date: 2024-11-13 15:41:18 Measurements Intervals Olin Rate: 89 P: 73 WI: 168 QRS: 79 QRSD: 86 T: 64 QT: 376 QTc: 459 Interpretive Statements SINUS RHYTHM NONSPECIFIC ST & T-WAVE ABNORMALITY No previous ECG available for comparison Electronically Signed On 11-15-2024 22:34:56 CDT by Isaías Cannon M.D.
[2024-11-13] MEDS: IPRATROPIUM 0.5 MG/ALBUTEROL SULFATE 2.5 MG AMPUL.NEB 3 ML INHALATION (15:12)
[2024-11-13 15:40] LABS: Hematocrit 48.0 % (40.0-54.0); Hemoglobin 16.4 g/dL (14.0-18.0); Immature Granulocyte Percent A 0.4 % (0.0-0.0); Lymphocytes Absolute Auto 1.34 K/mm3 (1.10-4.50); Mean Corpuscular HGB Conc 34.2 g/dL (32-36); Mean Corpuscular Hemoglobin 29.6 pg (27.0-31.0); Mean Corpuscular Volume 86.6 fL (78.0-102.0); Nucleated Red Blood Cells Absolute Auto 0.00 K/mm3 (0.00-0.00); Nucleated Red Blood Cells Perc 0.0 % (0-0.0); Platelet Count Result 287 K/mm3 (150-420); Red Blood Count 5.54 M/mm3 (4.70-6.10); White Blood Count 7.8 K/mm3 (4.8-10.8)
--- NOTE | 2024-11-13 15:47 | PC.NURSE ---
Covid culture sent to lab
[2024-11-13 15:48] LABS: Add Urine Microscopic? YES; Appearance Urine Clear (Clear); Glucose Urine UA Negative (Negative); Leukocyte Esterase Ur Negative LEU/UL (Negative); Nitrate Urine Negative (Negative); Specific Grav Ur >= 1.030 (1.010-1.020)
--- OUTSIDE RECORDS SUMMARY | 2024-11-13 15:51 | XMS_ITS | Referral Summary ---
Author Organization [address] Address [address] [facility] [address] [place] [address] Care Team Providers Care Tank Insulator Rubber Name Role Phone Dylan Moore MD Primary Care Provider [phone] Bryson Dugan MD Unavailable [phone] Encounters Date Type Department Care Team Description 11/13/2024 Telephone [facility] Medical [facility] Convenient Care at [address] [place] [address] Tangela Lynch MA 11/10/2024 Orders Only [facility] [address] [address] Dylan Moore MD COPD exacerbation (HCC) 11/08/2024 Telephone [facility] [address] [address] Dylan Moore MD Albuterol Inhaler,prednisone refills 10/13/2024 7:00 PM CDT Office Visit [facility] Medical [facility] at [address] [place] [address] Jasmine Ace NP COPD exacerbation (HCC) (Primary Dx) from Last 3 Months Allergies No known active allergies Medications multivitamin capsule Take 1 capsule by mouth daily Active vit D3-vit G-brtfomzrj-acy s [phone] jzqo-ssn-ua-mg tablet Take by mouth Active metoprolol tartrate [...] will schedule an appointment with our offers director social service for next week. He denies feeling depressed [...] exercise, continue on atorvastatin 20 mg daily. 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 Testing performed by: [facility], [address] [place] [address], [place]., [address] Blood 07/28/2023 9:40 AM CDT 07/28/2023 1:39 PM CDT us Candy Gibbs NP LAB BLOOD ORDERABLES Final Result [facility] 1 [facility] Department [place] [address] * CT Lung Cancer Screening (03/25/2022 8:11 AM CARE TRANSITION COORDINATOR) Anatomical Region Laterality Modality Chest N/A Computed Tomogra phy 03/25/2022 6:20 PM CARE TRANSITION COORDINATOR Impressions 03/25/2022 6:26 PM CARE TRANSITION COORDINATOR 1. Background of mild pulmonary emphysema. 2. [...] Melissa Leonard M.D. TW: NERY Report ID: [id number] Reading Location: [id number] [facility] 03/25/2022 6:26 PM CARE TRANSITION COORDINATOR EXAM DESCRIPTION: CT LUNG CANCER SCREENING REASON [...] Most Recently Relevant to Health Maintenance Insurance [id number] [place] [address] [employer] OPEN ACCESS Member Subscriber Plan / Payer (Ef fective 2022-Present) Name:Liu Philip Relation to Subscriber:Self Name:Liu Philip Payer ID:[id number] Group ID:[id number] Type:[facility] HMO/PPO Address: [address] [address] Advance Directives For more information, please contact: [phone] Documents on File Type Date Recorded 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
--- OUTSIDE RECORDS SUMMARY | 2024-11-13 15:51 | XMS_ITS | Clinical Summary ---
Author Organization [facility] [place] 163 [facility] lt Address [address] [place] [address] Care Team Providers Care Family Literacy Coordinator Name Role Phone Dylan Moore MD Primary Care Provider [phone] Bryson Dugan MD Unavailable [phone] Allergies No known active allergies Medications multivitamin capsule Take 1 capsule by mouth daily Active vit D3-vit V-pxjkzzuaz-ctk s [phone] fmtq-txm-yn-mg tablet Take by mouth Active metoprolol tartrate [...] will schedule an appointment with our offers dialysis social worker for next week. He denies [...] visit in 6 months, labs ordered to [email or web address]. Assessment & Plan (01/04/2022 4:48 PM CDT): Condition is improving, but not at goal Discussed/ordered labs, encouraged healthy, low carbohydrate lifestyle and at least 150min/week of exercise, continue on atorvastatin 20 mg daily. LD=157, HDL=54, DYN=427, PYM=724 Assessment & Plan (12/05/2021 8:16 AM CDT): [...] (05/19/2020): Added automatically from request for surgery [id number] Bleeding duodenal ulcer Resolved Problems Problem Noted Date Diagnosed Date Resolved Date Need for pneumococcal vaccine 12/05/2021 12/05/2021 Moderate malnutrition 05/22/20202020 Encounters Date Type Department Care Team Description 11/13/2024 Telephone [facility] Convenient Care at [address] [place] [address] Tangela Lynch MA 11/10/2024 Orders Only [facility] [address] [address] Dylan Moore MD COPD exacerbation (HCC) 11/08/2024 Telephone [facility] [address] [address] Dylan Moore MD Albuterol Inhaler,prednisone refills 10/13/2024 7:00 PM CDT Office Visit [facility]ient Care at [address] [place] [address] Jasmine Ace NP COPD exacerbation (HCC) (Primary [...] on file 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 Testing performed by: [facility], [address] [place] [address]., [address] Blood 07/28/2023 9:40 AM CDT 07/28/2023 1:39 PM CDT Candy Gibbs HAND DEVELOPER LAB BLOOD ORDERABLES Final Result [facility] 1 [facility] Department [place] [address] * CT Lung Cancer Screening (03/25/2022 8:11 AM ACCOUNT DEVELOPMENT SPECIALIST) Anatomical Region Laterality Modality Chest N/A Computed Tomogra phy 03/25/2022 6:20 PM ACCOUNT DEVELOPMENT SPECIALIST Impressions 03/25/2022 6:26 PM ACCOUNT DEVELOPMENT SPECIALIST 1. Background of mild pulmonary emphysema. 2. [...] Melissa Leonard M.D. TW: NERY Report ID: [id number] Reading Location: [id number] Narrative 03/25/2022 6:26 PM ACCOUNT DEVELOPMENT SPECIALIST EXAM DESCRIPTION: CT LUNG CANCER SCREENING REASON [...] There is thoracic spondylosis. 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
--- OUTSIDE RECORDS SUMMARY | 2024-11-13 15:51 | XMS_ITS ---
Author Organization [facility] [place] 163 [facility] lto Address [address] [place] [address] Care Team Providers Care Ethernet Network Architect Name Role Phone Dylan Moore MD Primary Care Provider [phone] Bryson Dugan MD Unavailable [phone] Active Problems Problem Noted Date Diagnosed Date [...] will schedule an appointment with our offers group social worker for next week. He denies [...] visit in 6 months, labs ordered to [facility]. Assessment & Plan (01/04/2022 4:48 PM CDT): Condition is improving, but not at goal Discussed/ordered labs, encouraged healthy, low carbohydrate lifestyle and at least 150min/week of exercise, continue on atorvastatin 20 mg daily. BG=275, HDL=54, FGC=948, VJZ=785 Assessment & Plan (12/05/2021 8:16 AM CDT): [...] (05/19/2020): Added automatically from request for surgery [id number] Bleeding duodenal ulcer Current Treatment and Therapy [...]
--- OUTSIDE RECORDS SUMMARY | 2024-11-13 15:51 | XMS_ITS | Encounter Summary ---
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 Patient scheduled with us tomorrow. documented in this encounter Plan of Treatment Not on file documented as of this encounter Visit Diagnoses Not on filedocumented in this encounter Care Teams Wringer And Setter Relationship Specialty Start Date End Date Dylan Moore MD [address] [place] [address] PCP - General Family Medicine 11/29/19 Bryson Dugan MD [address] [place] [address] Consulting Physician Gastroenterology 05/23/20 documented as of this encounter
[2024-11-13 15:55] LABS: Alanine Aminotransferase 40 U/L (6-50); Albumin Level 4.9 g/dL (3.5-5.1); Alkaline Phosphatase 99 U/L (38-126); Anion Gap 10 mmol/L (4-12); Aspartate Amino Transferase 40 U/L (17-59); Bilirubin,Total 1.6 mg/dL (0.2-1.3); Blood Urea Nitrogen 9 mg/dL (9-20); Calcium 8.9 mg/dL (8.4-10.2); Carbon Dioxide 25 mmol/L (22-30); Chloride 104 mmol/L (98-107); Creatine Kinase 192 U/L (55-170); Estimated CRCL calculation 107 ml/min; Estimated Glomerular Filt Rate > 60; Glucose 115 mg/dL (65-110); Lipase 52 U/L (23-300); Magnesium 2.0 mg/dL (1.6-2.3); Osmolality Calculated 287 mOsm/kg (285-295); Potassium 4.0 mmol/L (3.4-5.0); Sodium 139 mmol/L (137-145); Total Protein 8.2 g/dL (6.3-8.2)
[2024-11-13] MEDS: cefTRIAXone 1 GM, LIDOCAINE 1% LOCAL INJ 2.1 ML IM (16:32)
[2024-11-13] MEDS: AZITHROMYCIN 250 MG TABLET 500 MG PO (16:33)
[2024-11-13 16:41] LABS: Influenza A QL RT-PCR Negative (Negative); Influenza B QL RT-PCR Negative (Negative); RSV RNA, RT-PCR Negative (Negative); SARS-CoV-2 RNA PCR Negative (Negative)
[2024-11-13 16:48] LABS: NT Pro B Type Natriuretic Pept 58 pg/mL (19.9-100); Troponin I < 0.012 ng/mL (0.000-0.034)
[2024-11-13 16:52] LABS: HCO3 ABG 22.1 mmol/L (23-29); Oxygen Saturation ABG 91.1 % (95-97); PCO2 ABG 37.1 mmHg (35-45); PO2 ABG 61.8 mmHg (80-90)
[2024-11-13 16:53] LABS: Liters per Minute 0.0 LPM; Modified Allen's Test Pass; Site Drawn LEFT RADIAL
[2024-11-13 17:14] LABS: INR 1.0; Prothrombin Time 11.3 Seconds (9.64-11.0)
[2024-11-13 17:23] LABS: Partial Thromboplastin Time 29.4 Sec (23.9-30.70)
== END 2024-11-13 17:57 | disposition home or self-care (01) ==
PROVIDERS: Emergency Provider Internal Medicine Critical Care Medicine; PCP Family Medicine
DX: J44.1 Chronic obstructive pulmonary disease with (acute) exacerbation (principal); R91.1 Solitary pulmonary nodule; I10 Essential (primary) hypertension; E78.5 Hyperlipidemia, unspecified; Z85.46 Personal history of malignant neoplasm of prostate; Z87.891 Personal history of nicotine dependence; Z20.822 Contact with and (suspected) exposure to COVID-19
CPT/HCPCS: 36415; 36600; 71045; 80053; 81001; 82550; 82805; 83605; 83690; 83735; 83880; 84484; 85025; 85380; 85610; 85730; 87637; 93005; 96372; 99284; A9270; J0696; J2003; J2919

== ENCOUNTER 2025-04-23 08:30 | Observation (INO) | payer OTHER, SELFPAY ==
[2025-04-23] VITALS (36 sets, daily range): BP systolic 123–176; BP diastolic 86–118; PULSE 98–125; RESP 15–29; TEMP 36.3–36.8; O2SAT 87–100; BMI 30.4
--- NOTE | ~2025-04-23 | CT_ITS ---
CTA CHEST CLINICAL HISTORY: Shortness of breath . COMPARISON: Chest x-ray 11/13/2024 TECHNIQUE: Helical CTA performed from thoracic inlet to upper abdomen 100 mL Omnipaque 350 Coronal, sagittal reformats. Multiplanar MIPS CT images acquired with automatic exposure control for dose reduction DLP: 590 mGy-cm FINDINGS: Pulmonary arteries: No PE. Thoracic Aorta: No dissection or aneurysm. Heart/pericardium: Unremarkable. RV/LV ratio: Normal. Lungs/Pleura: Mild emphysema. Right lower lobe calcified granuloma Tracheobronchial tree: Scattered foci of mucus debris. Nodes: Small right hilar nodes. Right hilar calcifications. Bones: No acute bony abnormality. Soft tissues: Unremarkable. Visualized upper abdomen: No acute abnormality. IMPRESSION: 1. No PE or other acute cardiopulmonary findings. Reviewed, dictated and finalized at location R. E ENGINEER
--- OUTSIDE RECORDS SUMMARY | 2025-04-23 08:35 | XMS_ITS ---
Author Organization [facility] [place] [address] [facility] lto Address [address] [facility] [place] [address] Care Team Providers Care Mechanical Designer Name Role Phone Dylan Moore MD Primary Care Provider [phone] Bryson Dugan MD Unavailable [phone] Active Problems Problem Noted Date Diagnosed Date Pulmonary nodule 1 cm or greater in diameter 11/2024 Assessment & Plan (02/15/2025 4:10 PM CDT): Order chest CT today to evaluate pulmonary nodule. Discussed my concern for increased size of pulmonary nodule and need to further evaluate. Discussed concerns for malignancy, patient verbalized understanding. Orders: ipratropium-albuteroL (DUO-NEB) 0.5-2.5 mg/3 mL nebulizer solution; Take 3 mL by nebulization 4 (four) times a day as needed for wheezing or shortness of breath CT Chest WO Contrast; Future Tinea corporis 08/12/2024 Assessment & Plan (08/12/2024 2:47 PM CDT): Patient with annular pruritic rash on upper back present for the past several months. Consistent with tinea, recommended use of Nizoral shampoo as body wash instructed to leave on skin for 5 minutes before rinsing. Dry skin thoroughly, apply clotrimazole cream b.i.d.. Follow up if no improvement. Uncontrolled hypertension 01/04/2022 Assessment & Plan (02/15/2025 4:10 PM CDT): Patient to start hydrochlorothiazide 12.5 mg daily in addition to currently prescribed metoprolol and irbesartan. Would like him to follow up in office in 1-2 weeks for BP check. Orders: hydroCHLOROthiazide 12.5 mg tablet; Take 1 tablet/capsule (12.5 mg total) by mouth daily Assessment & Plan (01/04/2022 4:57 PM CDT): [...] will schedule an appointment with our offers web content & social media manager for next week. He denies feeling depressed or hopeless. Denies any suicidal ideation or plans when asked directly today. Fatigue 12/29/2020 Assessment & Plan (12/29/2020 6:00 PM CDT): Discussed causes of fatigue. Will check labs today. Discussed LOIDA, patient would like to return to discuss further. Encounter for screening for lung cancer 12/30/19 21 Assessment & Plan (12/29/2020 5:36 PM CDT): [...] 33.9 in adult 06/06/2020 Assessment & Plan (02/15/2025 4:10 PM CDT): No unintentional weight loss. Assessment & Plan (08/12/2024 2:44 PM CDT): [...] obstructive pulmonary disease 06/06/2020 Assessment & Plan (02/15/2025 4:10 PM CDT): Progressive shortness breath and wheezing in the setting of chronic bronchitis and right lower lobe pulmonary nodule. Discussed with patient that nodule had increased in size from 3 mm to [address] of chest completed 03/2022 and chest x-ray completed 10/2024. Discussed my concern for possible malignancy and need for additional workup. Had a lengthy discussion with patient regarding temporary relief from prednisone but is not sustainable. He denies any fevers, changes in appetite or unintentional weight loss. No hemoptysis. Financial concerns about imaging and hospitalization limiting patient. After further discussion he states that he does in fact have insurance however has been told that our office does not accept his insurance. Strongly encouraged him to check with his insurance provider to alleviate financial concerns and find in network facilities. Patient requests order for chest CT be ordered for [facility]. I recommended that he find an in network vaccine customer representative to better manage poorly controlled COPD. Prescribed DuoNeb. Continue Advair. Patient currently completing 5 day course of prednisone. Reviewed ER precautions. Assessment & Plan (08/12/2024 5:06 PM CDT): [...] infection 05/19/2020 Hyperlipidemia 05/19/2020 Assessment & Plan (02/15/2025 4:10 PM CDT): Unclear if patient is taking atorvastatin 40 mg daily as prescribed. Encouraged patient to take atorvastatin 40 mg daily as prescribed. Will check at home and notify office if he is in fact taking this medication and will adjust medication as needed. Strongly encouraged limiting EtOH use. Discussed concerns for increased cardiovascular risk with uncontrolled cholesterol and blood pressure. Assessment & Plan (02/15/2025 4:10 PM CDT): Unclear if patient is taking atorvastatin 40 mg daily as prescribed. Encouraged patient to take atorvastatin 40 mg daily as prescribed. Will check at home and notify office if he is in fact taking this medication and will adjust medication as needed. Strongly encouraged limiting EtOH use. Discussed concerns for increased cardiovascular risk with uncontrolled cholesterol and blood pressure. Assessment & Plan (08/12/2024 2:44 PM CDT): [...] visit in 6 months, labs ordered to [facility]. Assessment & Plan (01/04/2022 4:48 PM CDT): Condition is improving, but not at goal Discussed/ordered labs, encouraged healthy, low carbohydrate lifestyle and at least 150min/week of exercise, continue on atorvastatin 20 mg daily. PO=710, HDL=54, PGU=696, CMJ=005 Assessment & Plan (12/05/2021 8:16 AM CDT): [...] (05/19/2020): Added automatically from request for surgery [id number] Bleeding duodenal ulcer Current Treatment and Therapy [...]
--- NOTE | 2025-04-23 08:41 | ECG_ITS ---
Test Date: 2025-04-23 08:54:58 Measurements Intervals [place] Rate: 105 P: 72 [place]: 166 QRS: 81 QRSD: 97 T: 19 QT: 336 QTc: 445 Interpretive Statements SINUS TACHYCARDIA MINIMAL Q WAVES- INF/LAT LEADS NONSPECIFIC ST & T-WAVE ABNORMALITY- INFERIOR LEADS BORDERLINE ECG Compared to ECG 11/13/2024 15:41:18 HEART RATE HAS INCREASED Electronically Signed On 04-23-2025 15:20:08 FRONT LINE SUPERVISOR by Ian Heaton D.O.
[2025-04-23] MEDS: IPRATROPIUM 0.5 MG/ALBUTEROL SULFATE 2.5 MG (BASE) AMPUL.NEB 3 ML INHALATION (08:48)
[2025-04-23] MEDS: MAGNESIUM SULF 2 GM/WATER 50ML 2 GM/50 ML BAG IVPB (08:51)
[2025-04-23 09:18] LABS: Hematocrit 47.5 % (40.0-54.0); Hemoglobin 16.4 g/dL (14.0-18.0); Immature Granulocyte Percent A 0.2 % (0.0-0.0); Lymphocytes Absolute Auto 1.25 K/mm3 (1.10-4.50); Mean Corpuscular HGB Conc 34.5 g/dL (32-36); Mean Corpuscular Hemoglobin 29.7 pg (27.0-31.0); Mean Corpuscular Volume 85.9 fL (78.0-102.0); Nucleated Red Blood Cells Absolute Auto 0.00 K/mm3 (0.00-0.00); Nucleated Red Blood Cells Perc 0.0 % (0-0.0); Platelet Count Result 264 K/mm3 (150-420); Red Blood Count 5.53 M/mm3 (4.70-6.10); White Blood Count 8.6 K/mm3 (4.8-10.8)
--- OUTSIDE RECORDS SUMMARY | 2025-04-23 09:28 | XMS_ITS ---
Author Organization [facility] [place] 163 [facility] lto Address [address] [place] [address] Care Team Providers Care Fundraiser Name Role Phone Dylan Moore MD Primary Care Provider [phone] Bryson Dugan MD Unavailable Active Problems Problem Noted Date Diagnosed Date [...] schedule an appointment with our offers social media developer for next week. He denies feeling depressed [...] order for chest CT be ordered for [facility]. I recommended that he find an in network telegraph editor to better manage poorly controlled COPD. Prescribed [...] visit in 6 months, labs ordered to [facility]. Assessment & Plan (01/04/2022 4:48 PM CDT): Condition is improving, but not at goal Discussed/ordered labs, encouraged healthy, low carbohydrate lifestyle and at least 150min/week of exercise, continue on atorvastatin 20 mg daily. XL=965, HDL=54, IFV=655, TXT=569 Assessment & Plan (12/05/2021 8:16 AM CDT): [...] (05/19/2020): Added automatically from request for surgery [id number] Bleeding duodenal ulcer Current Treatment and Therapy [...]
[2025-04-23 09:31] LABS: Alanine Aminotransferase 62 U/L (6-50); Albumin Level 5.0 g/dL (3.5-5.1); Alkaline Phosphatase 93 U/L (38-126); Anion Gap 10 mmol/L (4-12); Aspartate Amino Transferase 51 U/L (17-59); Bilirubin,Total 1.5 mg/dL (0.2-1.3); Blood Urea Nitrogen 12 mg/dL (9-20); Calcium 9.4 mg/dL (8.4-10.2); Carbon Dioxide 28 mmol/L (22-30); Chloride 103 mmol/L (98-107); Estimated CRCL calculation 92 ml/min; Estimated Glomerular Filt Rate > 60; Glucose 118 mg/dL (65-110); Magnesium 2.1 mg/dL (1.6-2.3); Osmolality Calculated 292 mOsm/kg (285-295); Potassium 3.4 mmol/L (3.4-5.0); Sodium 141 mmol/L (137-145); Total Protein 7.9 g/dL (6.3-8.2)
[2025-04-23 09:32] LABS: INR 1.1; Partial Thromboplastin Time 28.5 Sec (23.9-30.70); Prothrombin Time 11.9 Seconds (9.50-12.1)
[2025-04-23 09:43] LABS: NT Pro B Type Natriuretic Pept 78 pg/mL (19.9-100); Troponin I < 0.012 ng/mL (0.000-0.034)
[2025-04-23 09:57] LABS: Influenza A QL RT-PCR Negative (Negative); Influenza B QL RT-PCR Negative (Negative); RSV RNA, RT-PCR Negative (Negative); SARS-CoV-2 RNA PCR Negative (Negative)
--- NOTE | 2025-04-23 10:39 | ED.SOB ---
HPI - SOB/Dyspnea General Chief Complaint: Shortness of Breath/Dyspnea Stated Complaint: shortness of breath; COPD Time Seen by Provider: 04/23/25 08:36 Source: patient Mode of arrival: ambulatory Limitations: no limitations History of Present Illness HPI Narrative: This is a 64-year-old male with a history of COPD/asthma presents with a 2 day history of shortness of breath with audible wheezing there is no fever chills no chest pain no abdominal pain no nausea vomiting no diarrhea constipation. Patient has been using his inhalers and nebulizer with minimal relief. MD elicited complaint: shortness of breath Pertinent past history: COPD and asthma Onset (ago): day(s) Severity: moderate Relieving factors: nothing Known history of: COPD and asthma Associated symptoms: denies other symptoms Related Data Home Medications ?Medication ?Instructions ?Recorded ?Confirmed ?Last Taken ?Type atorvastatin 20 mg tablet 20 mg PO DAILY 03/17/19 03/23/19 03/21/19 History fluticasone fur. 100 mcg-umeclid 1 inh inhalation DAILY 03/17/19 03/17/19 03/21/19 History 62.5 mcg-vilant 25 mcg inhalat.powder (Trelegy Ellipta) irbesartan 150 mg tablet 150 mg PO DAILY 03/17/19 03/17/19 03/21/19 History fluticasone fur. 100 mcg-umeclid 1 inhalation inhalation DAILY 04/12/19 Unknown History 62.5 mcg-vilant 25 mcg inhalat.powder (Trelegy Ellipta) Allergies Allergy/AdvReac Type Severity Reaction Status Date / Time No Known Allergies Allergy Verified 04/23/25 08:36 Review of Systems Review of Systems: All systems reviewed & are unremarkable except as noted in HPI and below PMFSH Past Medical History Medical History Encounter for screening colonoscopy History of prostate cancer COPD (chronic obstructive pulmonary disease) Hypertension Hyperlipidemia Family History Family History Mother Patient's mother is , Onset Age: 84 Family history of malignant neoplasm of uterus Family history of malignant neoplasm of urinary bladder Father Carcinoma of colon Malignant neoplasm of prostate Social History Social History Smoking status: Former smoker Alcohol intake: current Exam Const: General: healthy appearing, no acute distress and alert HENMT: Head: normal to inspection Neck: Neck: normal visual inspection, no lymphadenopathy and no meningeal signs Chest: Chest palpation & inspection: normal inspection of the chest Resp: Effort & Inspection: normal respiratory effort Auscultation: wheezes Cardio: Rate: tachycardic Rhythm: regular rhythm GI: GI Palp: Yes Soft to palpation Auscultation: normal bowel sounds : General: Yes bladder normal to palpation Neuro: General: patient oriented x3 and moves all extremities Extrem: General: normal to inspection, no clubbing, cyanosis or edema and no pedal edema Course Course Emergency Course: Medical decision making narrative: The patient was evaluated by myself in the emergency department. History obtained from the patient was imbedded historian and physical exam witnessed by nurse and performed and witnessed by nurse. Patient with history of COPD received nebulizer treatment IV steroids and magnesium CT scan of the chest shows no pulmonary embolism no acute infiltrates. Repeat assessment: The patient no acute distress on repeat exam with some wheezing has improved from having breathing treatments. Symptoms have improved marginally since arrival to the emergency department Repeat vitals are stable O2 sats around 91% on room air heart rate around 108. Patient agrees with discussion and after shared medical decision-making and agrees with admission. All questions answered the patient's and satisfaction. Spoke to hospitals and agreed with admission to the hospital. Vital Signs Vital signs: Vital Signs Temperature 36.6 C 04/23/25 08:30 Pulse Rate 112 H 04/23/25 08:30 Respiratory Rate 22 H 04/23/25 08:30 Blood Pressure 176/118 H 04/23/25 08:30 Pulse Oximetry 91 04/23/25 08:30 Oxygen Delivery Room Air 04/23/25 08:30 Temperature 36.6 C 04/23/25 08:30 Pulse Rate 110 H 04/23/25 10:29 Respiratory Rate 23 H 04/23/25 10:16 Blood Pressure 150/99 H 04/23/25 10:15 Pulse Oximetry 90 04/23/25 10:29 Oxygen Delivery Room Air 04/23/25 10:29 MDM Differential Diagnosis Differential Diagnosis: COPD/asthma exacerbation Lab Data 04/23/25 09:10 04/23/25 09:10 Labs: Lab Results 04/23/25 04/23/25 Range/Units 08:49 09:10 WBC 8.6 (4.8-10.8) K/mm3 RBC 5.53 (4.70-6.10) M/mm3 Hgb 16.4 (14.0-18.0) g/dL Hct 47.5 (40.0-54.0) % MCV 85.9 (78.0-102.0) fL MCH 29.7 (27.0-31.0) pg MCHC 34.5 (32-36) g/dL RDW 11.9 (11.6-14.4) % Plt Count 264 (150-420) K/mm3 MPV 11.1 H (8.7-11.0) fl Immature Gran % (Auto) 0.2 H (0.0-0.0) % Neut % (Auto) 67.2 (50.0-70.0) % Lymph % (Auto) 14.6 L (18.0-42.0) % [place] % (Auto) 8.3 (2.0-11.0) % Eos % (Auto) 8.9 H (1.0-6.0) % Baso % (Auto) 0.8 (0.0-1.0) % Lymph # (Auto) 1.25 (1.10-4.50) K/mm3 [place] # (Auto) 0.71 (0.10-0.90) K/mm3 Eos # (Auto) 0.76 H (0.02-0.50) K/mm3 Baso # (Auto) 0.07 (0.00-0.10) K/mm3 Abs Immat Gran (auto) 0.02 H (0.00-0.00) K/mm3 Absolute Neuts (auto) 5.75 (1.70-7.20) K/mm3 Absolute Nucleated RBC 0.00 (0.00-0.00) K/mm3 Nucleated RBC % 0.0 (0-0.0) % PT 11.9 (9.50-12.1) Seconds INR 1.1 APTT 28.5 (23.9-30.70) Sec D-Dimer 0.40 (0.19-0.50) mg/L Sodium 141 (137-145) mmol/L Potassium 3.4 (3.4-5.0) mmol/L Chloride 103 (98-107) mmol/L Carbon Dioxide 28 (22-30) mmol/L Anion Gap 10 (4-12) mmol/L BUN 12 (9-20) mg/dL Creatinine 0.86 (0.7-1.3) mg/dL Estim Creat Clear Calc 92 ml/min Estimated GFR > 60 (59 - ) Glucose 118 H (65-110) mg/dL Calculated Osmolality 292 (285-295) mOsm/kg Calcium 9.4 (8.4-10.2) mg/dL Magnesium 2.1 (1.6-2.3) mg/dL Total Bilirubin 1.5 H (0.2-1.3) mg/dL AST 51 (17-59) U/L ALT 62 H (6-50) U/L Alkaline Phosphatase 93 (38-126) U/L Troponin I < 0.012 (0.000-0.034) ng/mL NT-Pro-B Natriuret Pep 78 (19.9-100) pg/mL Total Protein 7.9 (6.3-8.2) g/dL Albumin 5.0 (3.5-5.1) g/dL Influenza A (RT-PCR) Negative (Negative) Influenza B (RT-PCR) Negative (Negative) RSV (RT-PCR) Negative (Negative) SARS-CoV-2 RNA (RT-PCR) Negative (Negative) Imaging Data Radiologist's impression: ITS Impressions Chest CTA 04/23/25 10:18 IMPRESSION: 1. No PE or other acute cardiopulmonary findings. Discharge Plan Discharge Clinical Impression: Acute exacerbation of chronic obstructive pulmonary disease Patient Disposition: Acute Care Hospital Condition: Guarded Prognosis Patient Language: Cameroonian Prescriptions: No Action azithromycin [Zithromax] 250 mg tablet 250 mg PO DAILY 4 Days Qty: 4 0RF Rx Instructions: start on day 2 of therapy ipratropium-albuterol 0.5 mg-3 mg(2.5 mg base)/3 mL solution for nebulization 3 ml inhalation Q6H MDD 4 PRN (Reason: shortness of breath) Qty: 180 0RF prednisone 20 mg tablet 20 mg PO BID Qty: 10 0RF atorvastatin 20 mg Tablet 20 mg PO DAILY irbesartan 150 mg Tablet 150 mg PO DAILY Trelegy Ellipta 100-62.5-25 mcg Blister With Device 1 inh INHALATION DAILY Trelegy Ellipta 100-62.5-25 mcg blister with device 1 inhalation INHALATION DAILY Follow-up/Referrals: Harms,Dylan Parkinson M.D. [Primary Care Provider] Time of Disposition: 10:50
--- NOTE | 2025-04-23 11:45 | ADMGEN ---
This patient, Liu Philip, was admitted to 2nd Floor Room 205 as OBS due to COPD exacerbation. Patient/family oriented to hospital policies and general routines including ID bracelet, bed and alarms, visiting hours, pain management, procedures, bathroom and other care routines, personal items, smoking policy, room service/diet, and visiting hours. Information on how to activate the Rapid Response Team has been discussed. Patient/Family are encouraged to report perceived risks to care and to ask questions if they do not understand what they are told or what they should do.
[2025-04-23] MEDS: BENZONATATE 100 MG CAPSULE 200 MG PO (14:16)
[2025-04-23] MEDS: guaiFENesin 12 HR 600 MG TABCR 1200 MG PO ×2 (14:16→20:53)
[2025-04-23] MEDS: ATORVASTATIN 40 MG TABLET PO (14:17)
[2025-04-23] MEDS: MONTELUKAST SODIUM 10 MG TABLET PO (17:03)
[2025-04-23 17:18] LABS: Add Urine Microscopic? NO; Appearance Urine Clear (Clear); Glucose Urine UA 1+ (Negative); Leukocyte Esterase Ur Negative LEU/UL (Negative); Nitrate Urine Negative (Negative); Specific Grav Ur 1.010 (1.010-1.020)
[2025-04-23] MEDS: METOPROLOL TARTRATE 25 MG TABLET PO ×2 (18:10→20:53)
[2025-04-23] MEDS: IPRATROPIUM BR 0.02% INH SOLN 0.5 MG/2.5 ML VIAL INHALATION (18:10)
[2025-04-23] MEDS: SALMET XINAFT/FLUTIC PROPIN 250 MCG/50 MCG INH CAP 1 PUFF INHALATION (18:11)
[2025-04-24] VITALS (9 sets, daily range): BP systolic 124–125; BP diastolic 86–93; PULSE 96–112; RESP 20–22; TEMP 36.3–36.6; O2SAT 91–96
[2025-04-24] MEDS: IPRATROPIUM BR 0.02% INH SOLN 0.5 MG/2.5 ML VIAL INHALATION ×2 (00:14→05:56)
[2025-04-24] MEDS: SALMET XINAFT/FLUTIC PROPIN 250 MCG/50 MCG INH CAP 1 PUFF INHALATION (05:57)
[2025-04-24] MEDS: guaiFENesin 12 HR 600 MG TABCR 1200 MG PO (08:42)
[2025-04-24] MEDS: IRBESARTAN 150 MG TABLET PO (08:42)
[2025-04-24] MEDS: ATORVASTATIN 40 MG TABLET PO (08:43)
[2025-04-24] MEDS: METOPROLOL TARTRATE 50 MG TAB PO (08:43)
--- NOTE | 2025-04-24 09:21 | P.SS_ITS ---
Same Day Admit/Disch: HPI History of Present Illness Chief complaint: shortness of breath; COPD Narrative: Liu Philip is a 64 year old male with PMH of COPD, HTN, HLD and history of prostate cancer. Patient presented to the ER with complaints of dyspnea and audible wheezing for 2 days. Patient denies any other associated symptoms including chest pain, abdominal pain, nausea, vomiting, diarrhea or constipation. Patient reports he does have a cough, but this is chronic for him. Patient has tried to use his home inhalers and nebulizer treatments without improvement in symptoms. In the ER the patient's lab work was essentially unremarkable, chest x-ray negative for acute findings, Chest CT PE protocol ne gative for pulmonary embolism and rapid Covid. influenza and RSV swab negative. Patient was given IV steroids, nebulizer treatments and IV magnesium. Patient's oxygen saturations remained above 88% on room air. Patient was still not at baseline and was admitted to [facility] for observation. [facility] Past Medical History Medical History Encounter for screening colonoscopy History of prostate cancer COPD (chronic obstructive pulmonary disease) Hypertension Hyperlipidemia Family History Family History Mother Patient's mother is , Onset Age: 84 Family history of malignant neoplasm of uterus Family history of malignant neoplasm of urinary bladder Father Carcinoma of colon Malignant neoplasm of prostate Social History Social History Smoking packs per day: 2 Smoking cigarettes per day: 40.0 Years smoked: 35 Smoking pack-years: 70.00 Smoking status: Former smoker Tobacco type: cigarettes Alcohol intake: never Substance use: never Substance use type: does not use Lack of Transportation: No Lack of Food: Never True Current Housing: I Have Housing Concerned About Future Housing: No Difficulty Paying Gas/Electric Bills: No Difficulty Paying for Meds: No Currently Unemployed: No Education: High School Diploma/GED Difficulty w/ Childcare or Family Care: No Spiritual care concerns: No Same Day Admit/Disch: Med Pre-admit Medications Home Medications ?Medication ?Instructions ?Recorded ?Confirmed ?Type irbesartan 150 mg tablet 150 mg PO DAILY 03/17/19 History albuterol sulfate 90 mcg/actuation 2 puff inhalation Q 4H PRN 04/23/25 04/23/25 History aerosol inhaler shortness of breath or wheez ing atorvastatin 40 mg tablet 40 mg PO .QD 04/23/25 History fluticasone 250 mcg-salmeterol 50 1 inh inhalation Q12 H 04/23/25 04/23/25 History mcg/dose blistr powdr for inhalation hydrochlorothiazide 12.5 mg tablet 12.5 mg PO .QD 04/1104/23/25 History montelukast 10 mg tablet 10 mg PO QPM 04/23/25 History benzonatate 100 mg capsule 200 mg (2 x 100 mg) PO Q8H PRN 04/24/25 Rx Cough #40 caps guaifenesin 600 mg tablet, 1,200 mg (2 x 600 mg) PO Q1 2HR #30 04/24/25 Rx extended release 12 hr (Mucus tabs Relief ER) ipratropium bromide 0.02 % 0.5 mg (2.5 mL) inhalation Q6HRT 04/24/25 Rx solution for inhalation PRN shortness of breath or wheezing #300 mL levalbuterol HCl 1.25 mg/3 mL 1.25 mg (3 mL) inhalatio n Q6HRT 04/24/25 Rx solution for nebulization PRN shortness of breath or wheezing #360 mL metoprolol tartrate 50 mg tablet 50 mg PO Q12HR #60 ta bs 04/24/25 Rx prednisone 20 mg tablet 40 mg (2 x 20 mg) PO DAILY # 8 tabs 04/24/25 Rx Review of Systems Review of Systems All systems reviewed & are unremarkable except as noted in HPI and below Exam Const: General: comfortable and no acute distress HENMT: Face/Nose/Sinus: Normal nares present Mouth: Yes moist mucous membranes Eyes: General: appearance normal, both eyes and all related structures Sclera: sclerae normal Neck: Neck: supple Resp: Effort & Inspection: normal respiratory effort Other: few expiratory wheezes heard Cardio: Rate: tachycardic Rhythm: regular rhythm GI: GI Palp: Yes Soft to palpation Auscultation: normal bowel sounds Skin: General skin exam: normal color and no rashes or lesions noted Neuro: General: gait normal Speech: normal speech Motor exam (neuro): 5 motor strength present throughout Sensory Exam: normal sensation Extrem: General: normal to inspection Psych: Mental Status: mental status grossly normal Affect: normal affect DS: Data Data Completed and Pending Labs on day of discharge: Labs from last 24 hours 04/23/25 04/23/25 04/23/25 17:16 09:10 08:49 PT 11.9 INR 1.1 APTT 28.5 D-Dimer 0.40 Sodium 141 Potassium 3.4 Chloride 103 Carbon Dioxide 28 Anion Gap 10 BUN 12 Creatinine 0.86 Estim Creat Clear Calc 92 Estimated GFR > 60 Glucose 118 H Calculated Osmolality 292 Calcium 9.4 Magnesium 2.1 Total Bilirubin 1.5 H AST 51 ALT 62 H Alkaline Phosphatase 93 Troponin I < 0.012 NT-Pro-B Natriuret Pep 78 Total Protein 7.9 Albumin 5.0 Urine Color Light yellow Urine Appearance Clear Urine pH 5.5 Ur Specific [place] 1.010 Urine Protein Negative Urine Glucose (UA) 1+ H Urine Ketones Trace H Ur Blood (Man) Trace-intact H Urine Nitrate Negative Urine Bilirubin Negative Urine Urobilinogen 0.2 Leukocyte Esterase Rfl Negative Influenza A (RT-PCR) Negative Influenza B (RT-PCR) Negative RSV (RT-PCR) Negative SARS-CoV-2 RNA (RT-PCR) Negative Imaging Radiologist's impression: Ordering Physician: Robert Medeiros MD Date of Service: 11/13/24 Procedure(s): XR chest 1V portable Accession Number(s): [id number] cc: Robert Medeiros MD; UNKNOWN,DOCTOR~ EXAMINATION: XR chest 1V portable Exam Date/Time: 11/13/2024 15:09 CDT HISTORY: shortness of breath/ productive cough x1 day Comparison: None. RESULT: Lines, tubes, and devices: None. Lungs and pleura: No focal consolidation, pleural effusion, or pneumothorax. 1 cm nodular opacity in the right lower lung. Cardiomediastinal silhouette: Unremarkable. Other: No acute osseous or upper abdominal finding. IMPRESSION: No acute cardiopulmonary process. 1 cm nodular right lower lung opacity, may represent artifact or pulmonary nodule. Recommend PA and lateral views of the chest and comparison to outside studies. Reviewed, dictated and finalized at location K. Ordering Physician: Torito Patterson MD Date of Service: 04/23/25 Procedure(s): CTA chest PE protocol Accession Number(s): [id number] cc: Teresa, Dylan Parkinson MD; Torito Patterson MD~ CTA CHEST CLINICAL HISTORY: Shortness of breath . COMPARISON: Chest x-ray 11/13/2024 TECHNIQUE: Helical CTA performed from thoracic inlet to upper abdomen 100 mL Omnipaque 350 Coronal, sagittal reformats. Multiplanar MIPS CT images acquired with automatic exposure control for dose reduction DLP: 590 mGy-cm FINDINGS: Pulmonary arteries: No PE. Thoracic Aorta: No dissection or aneurysm. Heart/pericardium: Unremarkable. RV/LV ratio: Normal. Lungs/Pleura: Mild emphysema. Right lower lobe calcified granuloma Tracheobronchial tree: Scattered foci of mucus debris. Nodes: Small right hilar nodes. Right hilar calcifications. Bones: No acute bony abnormality. Soft tissues: Unremarkable. Visualized upper abdomen: No acute abnormality. IMPRESSION: 1. No PE or other acute cardiopulmonary findings. Reviewed, dictated and finalized at location R. 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 Patient presented to the ER with complaints of dyspnea and audible wheezing for 2 days. Patient denies any other associated symptoms including chest pain, abdominal pain, nausea, vomiting, diarrhea or constipation. Patient reports he does have a cough, but this is chronic for him. Patient has tried to use his home inhalers and nebulizer treatments without improvement in symptoms. In the ER the patient's lab work was essentially unremarkable, chest x-ray negative for acute findings, Chest CT PE protocol negative for pulmonary embolism and rapid Covid. influenza and RSV swab negative. Patient was given IV steroids, nebulizer treatments and IV magnesium. Patient's oxygen saturations remained above 88% on room air. Patient was still not at baseline and was admitted to [facility] for obse rvation. On evaluation today the patient reports he is feeling much better. His lungs are clear with a few scattered expiratory wheezes on exam. Patient is on room air and oxygen saturations are stable. Patient has been tachycardic since admission and HR is in the low 100s. Patient was on metoprolol at home and I increased the dose to 50 mg BID. I switched patient's albuterol nebulizers to xopenex and educated him on the side effect of tachycardia with albuterol. Patient reports he doesn't have insurance currently and will have insurance as of May 12, 2025. Patient instructed to ask his PCP about a referral for cardiopulmonary rehab here at the hospital as an outpatient. Patient also recommended to be seen by pulmonology as an outpatient to discuss other possible treatments for COPD. Patient discharged home with PO prednisone x 4 more days. Patient will follow up with his PCP within 1-2 weeks of discharge. Time Spent with Patient Time attestation: Total time spent providing and/or coordinating discharge services: 25 Minutes DS: Admitting Diagnosis Discharge Date 04/24/2025 Admitting Diagnosis COPD exacerbation DS: Discharge Diagnosis Discharge Diagnosis (1) Acute exacerbation of chronic obstructive pulmonary disease: Code(s): J44.1 - Chronic obstructive pulmonary disease with (acute) exacerbation Status: Acute Assessment and Plan: IV Solumedrol PO prednisone on discharge x 4 more days nebulizer treatments, changed albuterol to Xopenex due to tachycardia s/p IV magnesium in the ER recommended for patient to see pulmonology as outpatient, he will schedule after May 12 when he gets insurance recommended patient to ask for referral to cardiopulmonary rehab here at the hospital as an outpatient continue home inhalers continue home montelukast much improved today. patient wuld like to go home (2) COPD (chronic obstructive pulmonary disease): Code(s): J44.9 - Chronic obstructive pulmonary disease, unspecified Status: Acute Assessment and Plan: see above (3) Hypertension: Code(s): I10 - Essential (primary) hypertension Status: Acute Assessment and Plan: continue metoprolol (4) Tachycardia: Code(s): R00.0 - Tachycardia, unspecified Status: Acute Assessment and Plan: telemetry monitoring HR in the low 100s prior to discharge increased metoprolol to 50 mg BID, discussed with patient Discharge Plan Discharge Attending physician on discharge: Brenton Kelly Discharging Clinician: Julia Dumont Anticipated Discharge Date/Time: 04/24/25 10:30 Patient Disposition: Home Activity: as tolerated Diet: heart healthy Discharge Instructions: Please ask your primary doctor about a referral to see a traffic analysis technician to discuss treatment options to help prevent COPD exacerbations. Also ask your PCP about a referral to cardio-pulmonary rehab here at [facility] once you obtain insurance in the new year. Work on deep breathing multiple times per day to help you open up your lungs and expectorate the mucus. Patient Instructions: Antibiotic Form, Metoprolol (By mouth), Ipratropium (By breathing), Prednisone (By mouth), Guaifenesin (By mouth), Levalbuterol (By breathing), COPD (Chronic Obstructive Pulmonary Disease) (DC) Patient Language: Welsh Stand Alone Forms: General Discharge Information Follow-up/Referrals: Teresa,Dylan Parkinson M.D. [Primary Care Provider] - 2 weeks Referral Note: call for an appt to be seen within 1-2 weeks of discharge Discharge Medications: New benzonatate 100 mg Capsule 200 mg PO Q8H PRN (Reason: Cough) Qty: 40 0RF guaifenesin [Mucus Relief ER] 600 mg Tablet Extended Release 12hr 1,200 mg PO Q12HR Qty: 30 0RF ipratropium bromide 0.02 % solution 0.5 mg inhalation Q6HRT PRN (Reason: shortness of breath or wheezing) Qty: 300 0RF levalbuterol HCl 1.25 mg/3 mL Solution For Nebulization 1.25 mg inhalation Q6HRT PRN (Reason: shortness of breath or wheezing) Qty: 360 0RF metoprolol tartrate 50 mg Tablet 50 mg PO Q12HR Qty: 60 0RF prednisone 20 mg tablet 40 mg PO DAILY Qty: 8 0RF Continued atorvastatin 40 mg tablet 40 mg PO .QD fluticasone propion-salmeterol 250-50 mcg/dose blister with device 1 inh INHALATION Q12H montelukast 10 mg tablet 10 mg PO QPM albuterol sulfate 90 mcg/actuation HFA aerosol inhaler 2 puff INHALATION Q4H PRN (Reason: shortness of breath or wheezing) hydrochlorothiazide 12.5 mg tablet 12.5 mg PO .QD irbesartan 150 mg Tablet 150 mg PO DAILY Discontinued ipratropium-albuterol 0.5 mg-3 mg(2.5 mg base)/3 mL solution for nebulization 3 ml inhalation Q6H MDD 4 PRN (Reason: shortness of breath) Qty: 180 0RF metoprolol tartrate 25 mg tablet 25 mg PO Q12H Date of admission: 04/23/25 10:51 Primary Care Provider: Teresa,Dylan Parkinson Admitting Provider: Brenton Kelly Attending physician on admission: Brenton Kelly Condition: Stable Quality VTE Prophylaxis VTE prophylaxis: mechanical ordered
--- NOTE | 2025-04-24 11:00 | PC.NURSE ---
Patient discharging home. All discharge instructions and education reviewed with patient. Patient states understanding. IV site removed, tip intact. Dressing applied to site. All belongings gathered together and sent home with patient. Patient denies an questions at discharge. Patient accompanied to front door via wheelchair, left via private vehicle with son.
--- NOTE | 2025-04-26 10:52 | PC.NURSE ---
Unable to complete discharge, wrong number on chart
== END 2025-04-24 11:00 | disposition home or self-care (01) ==
LOC: CHSED 10:50 → CHS2ND 11:27
PROVIDERS: Admitting Provider Internal Medicine; Emergency Provider Emergency Medicine; PCP Family Medicine; Visit Provider Internal Medicine
DX: J44.1 Chronic obstructive pulmonary disease with (acute) exacerbation (principal); I10 Essential (primary) hypertension; R00.0 Tachycardia, unspecified; E78.5 Hyperlipidemia, unspecified; Z20.822 Contact with and (suspected) exposure to COVID-19; Z79.51 Long term (current) use of inhaled steroids; Z85.46 Personal history of malignant neoplasm of prostate; Z87.891 Personal history of nicotine dependence
CPT/HCPCS: 36415; 71275; 80053; 81003; 83735; 83880; 84484; 85025; 85380; 85610; 85730; 87040; 87637; 93005; 94640; 96374; 96376; 99285; A9270; G0378; J2919; J3475; Q9967